=== PATIENT | female | born 1970 | race American Indian/Alaskan Native ===

== ENCOUNTER 2016-12-25 08:11 | Outpatient (CLI) | payer BC ==
--- NOTE | 2016-12-25 08:41 | Mammography Report ---
BILATERAL MAMMOGRAM: FINDINGS: The breast tissue is heterogeneously dense, which could obscure detection of small masses (approximately 50%-75% glandular). No mass, distortion, suspicious calcification, or skin change is seen. No significant change identified when compared to exams dating back to 2015. CAD was utilized. IMPRESSION: Negative mammogram. There is no mammographic evidence of malignancy. RECOMMENDATION: Follow-up per ACS guidelines. BI-RADS CATEGORY: 1 = Negative ACR BI-RADS MAMMOGRAPHIC CODES: 0 = Needs additional imaging evaluation; 1 = Negative; 2 = Benign; 3 = Probably benign; 4 = Suspicious; 5 = Malignant; 6 = Known biopsy-proven malignancy COMMENT: 1. Dense breast tissue, i.e., adenosis, fibrocystic changes, etc., may obscure an underlying neoplasm. 2. Approximately 10% of cancers are not detected with mammography. 3. A negative mammography report should not delay biopsy if a clinically suspicious mass is present. COMMENT: Patient follow-up letters are generated in [employer].
== END 2016-12-25 08:12 | disposition home or self-care (01) ==
LOC: SPVWC 08:11
PROVIDERS: ATTEND Family Medicine
DX: Z12.31 Encounter for screening mammogram for malignant neoplasm of breast (principal)
CPT/HCPCS: 77067; G0202

== ENCOUNTER 2018-10-20 09:32 | Outpatient (CLI) | payer BC ==
--- NOTE | 2018-10-20 12:11 | Ultrasound Report ---
ABDOMINAL ULTRASOUND HISTORY: Abdominal pain COMPARISON: None. TECHNIQUE: Multiple real-time ultrasonographic grayscale images were obtained of the abdomen. FINDINGS: Aorta: Normal. Maximum aortic diameter is 2.0 cm. IVC: Normal. Pancreas: Normal. Liver: No significant abnormality. A benign cluster of cysts in the right lobe measures 2.5 x 1.8 x 1 .5 cm. 2 9 mm hyperechoic right hepatic lesions consistent with benign hemangiomas. Gallbladder: No stones, wall thickening or pericholecystic fluid. 3 mm polyp on the dependent gallbla dder wall shows no movement with change in position. The gallbladder wall measures 2.3 mm. Common bile duct: 4.3 mm. Right kidney: Normal. No hydronephrosis. Kidney measures 11.2 x 4.7 x 5.9 cm. Spleen: Normal size and appearance measuring 0.5 cm in length. Left kidney: Normal. No hydronephrosis. Kidney measures 11.4 x 6.2 x 5.7 cm. Additional findings: None. IMPRESSION: 1. No cholelithiasis and no signs of acute cholecystitis. 2. A 3 mm benign gallbladder polyp. 3. A benign cluster of right hepatic cysts and benign right hepatic hemangiomas. Signer Name: Hieu Akins MD Signed: 10/20/2018 12:07 PM Workstation Name: [id number]
== END 2018-10-20 09:33 | disposition home or self-care (01) ==
LOC: SPVWC 09:32
PROVIDERS: ATTEND Internal Medicine Gastroenterology
DX: K76.89 Other specified diseases of liver (principal); K82.4 Cholesterolosis of gallbladder
CPT/HCPCS: 76700

== ENCOUNTER 2019-06-09 11:16 | Outpatient (CLI) | payer BC ==
--- NOTE | 2019-06-09 14:40 | Mammography Report ---
DIGITAL SCREENING MAMMOGRAM WITH CAD, 06/09/2019 INDICATION: Routine screening mammography. TECHNIQUE: Digital bilateral 2D mammography was obtained in the craniocaudal and mediolateral obliq ue projections. This examination was interpreted with the benefit of Computer-Aided Detection analysi s. COMPARISON: 03/03/2018 and 12/25/2016 FINDINGS: Breast Density: The breasts are heterogeneously dense, which may obscure small masses. There is no evidence of dominant mass, suspicious calcifications or architectural distortion in eithe r breast. IMPRESSION: No mammographic evidence of malignancy. Follow up recommendation: Routine yearly BI-RADS Category 2: Benign. A "normal" or negative report should not discourage follow up or biopsy of a clinically significant f inding. A written summary of these findings will be mailed to the patient. The patient will be entered into a mammography reporting system which will generate a reminder letter for the patient's next appointmen t at the appropriate interval. The [employer] recommends yearly mammograms starting at age 40 and continuing as l pallavi as a woman is in good health. Breast MRI is recommended for women with an approximate 20-25% or greater lifetime risk of breast cancer, including women with a strong family history of breast or ova tony cancer or who have been treated for Hodgkin's disease. Signer Name: Hieu Akins MD Signed: 06/09/2019 2:35 PM Workstation Name: [id number]
== END 2019-06-09 11:17 | disposition home or self-care (01) ==
LOC: SPVWC 11:16
PROVIDERS: ATTEND Family Medicine
DX: Z12.31 Encounter for screening mammogram for malignant neoplasm of breast (principal)
CPT/HCPCS: 77067

== ENCOUNTER 2020-07-01 07:59 | Outpatient (CLI) | payer BC ==
--- NOTE | 2020-07-01 08:49 | Mammography Report ---
DIGITAL SCREENING MAMMOGRAM WITH CAD, 07/01/2020 CLINICAL INFORMATION / INDICATION: Routine screening mammography. SCREENING MAMMO TECHNIQUE: Digital bilateral 2D mammography was obtained in the craniocaudal and mediolateral obliqu e projections. This examination was interpreted with the benefit of Computer-Aided Detection analysis . COMPARISON: 06/09/2019, 03/03/2018 FINDINGS: Breast Density: The breasts are heterogeneously dense, which may obscure small masses. No dominant mass, suspicious calcifications, or architectural distortion in either breast. There is stable focal asymmetric tissue on the left. IMPRESSION: No mammographic evidence of malignancy. Follow up recommendation: Routine yearly BI-RADS Category 2: Benign. A "normal" or negative report should not discourage follow up or biopsy of a clinically significant f inding. A written summary of these findings will be mailed to the patient. The patient will be entered into a mammography reporting system which will generate a reminder letter for the patient's next appointmen t at the appropriate interval. The [employer] recommends yearly mammograms starting at age 40 and continuing as l pallavi as a woman is in good health. Breast MRI is recommended for women with an approximate 20-25% or greater lifetime risk of breast cancer, including women with a strong family history of breast or ova tony cancer or who have been treated for Hodgkin's disease. Signer Name: Rodger Hernandez MD Signed: 07/01/2020 8:45 AM Workstation Name: [id number]
== END 2020-07-01 08:00 | disposition home or self-care (01) ==
LOC: SPVWC 07:59
PROVIDERS: ATTEND Internal Medicine
DX: Z12.31 Encounter for screening mammogram for malignant neoplasm of breast (principal)
CPT/HCPCS: 77067

== ENCOUNTER 2021-07-26 14:44 | Outpatient (CLI) | payer BC ==
--- NOTE | 2021-07-28 10:07 | Mammography Report ---
DIGITAL SCREENING MAMMOGRAM WITH CAD, 07/26/2021 CLINICAL INFORMATION / INDICATION: Routine screening mammography. SCREENING MAMMO Z12.31 TECHNIQUE: Digital bilateral 2D mammography was obtained in the craniocaudal and mediolateral obliqu e projections. This examination was interpreted with the benefit of Computer-Aided Detection analysis . COMPARISON: 07/01/2020, 06/09/2019 and 12/25/2016 FINDINGS: Breast Density: The breasts are heterogeneously dense, which may obscure small masses. No dominant mass, suspicious calcifications, or architectural distortion in either breast. There is a stable focal asymmetric density in the upper outer quadrant of the left breast. IMPRESSION: No mammographic evidence of malignancy. Follow up recommendation: Routine yearly BI-RADS Category 2: BENIGN. A "normal" or negative report should not discourage follow up or biopsy of a clinically significant f inding. A written summary of these findings will be mailed to the patient. The patient will be entered into a mammography reporting system which will generate a reminder letter for the patient's next appointmen t at the appropriate interval. The [employer] recommends yearly mammograms starting at age 40 and continuing as l pallavi as a woman is in good health. Breast MRI is recommended for women with an approximate 20-25% or greater lifetime risk of breast cancer, including women with a strong family history of breast or ova tony cancer or who have been treated for Hodgkin's disease. Signer Name: Rodger Hernandez MD Signed: 07/28/2021 10:03 AM Workstation Name: [id number]
== END 2021-07-26 14:45 | disposition home or self-care (01) ==
LOC: SPVWC 14:44
PROVIDERS: ATTEND Internal Medicine
DX: Z12.31 Encounter for screening mammogram for malignant neoplasm of breast (principal)
CPT/HCPCS: 77067